=== PATIENT | male | born 2000 | race Caucasian/White ===

== ENCOUNTER 2023-04-25 09:13 | Emergency (ER) | payer BC | END 2023-04-25 09:46 | disposition home or self-care (01) | LOC: ERS 09:13 | DX: S61.512D Laceration without foreign body of left wrist, subsequent encounter (principal); Z48.02 Encounter for removal of sutures; F17.290 Nicotine dependence, other tobacco product, uncomplicated; X58.XXXD Exposure to other specified factors, subsequent encounter ==